=== PATIENT | female | born 1950 | race Caucasian/White ===

== ENCOUNTER 2019-06-16 06:00 | Outpatient (RCR) | payer MEDICARE, SELFPAY | END 2019-06-17 23:59 | disposition home or self-care (01) | LOC: LAB 06:00 | PROVIDERS: Visit Provider Family Medicine | DX: I48.91 Unspecified atrial fibrillation (principal); N39.0 Urinary tract infection, site not specified; I10 Essential (primary) hypertension | CPT/HCPCS: 36415 ×4; 81001 ×2; 84443; 85025; 85610 ×5; 87077 ×2; 87086 ×4; 87186 ×2 ==